=== PATIENT | female | born 1955 | race Caucasian/White ===

== ENCOUNTER 2021-08-17 04:05 | Inpatient (IN) | payer MEDICAID, OTHER ==
[~2021-08-17] VITALS: Ht 165.1 cm; Wt 66.2 kg
[2021-08-17 04:00] VITALS: BP 158/69
[2021-08-17 05:34] LABS: BASOPHILS % 0.7 % (0.0-2.0); EOSINOPHILS % 6.7 % (0.0-5.0); HEMATOCRIT. 34.6 % (36.0-48.0); HEMOGLOBIN. 11.7 g/dL (12.0-16.0); MEAN CORPUSCULAR HEMOGLOBIN 32.1 pg (28.0-32.0); MEAN CORPUSCULAR VOLUME 95.1 fL (81.0-99.0); MEAN PLATELET VOLUME 10.5 fl (7.4-10.4); MONOCYTES % 5.1 % (2.0-8.0); NEUTROPHILS % 56.5 % (40.0-76.0); PLATELET 201 x1000/uL (130-400); RED BLOOD CELL COUNT 3.64 mill/uL (4.2-5.4); RED CELL DISTRIBUTION WIDTH 12.8 % (11.6-14.6)
[2021-08-17 05:40] LABS: CHLORIDE 107 mEq/L (98-107)
[2021-08-17] MEDS ORDERED: ONDANSETRON 4MG ODT PO ONE (06:15)
[2021-08-17] MEDS ORDERED: FAMOTIDINE 20MG TABLET PO ONE (06:15)
[2021-08-17] MEDS ORDERED: MORPHINE SULFATE 4 MG/ML CPJ (NOT FOR IM USE) IV ONE (08:45)
[2021-08-17 12:09] LABS: CLARITY URINE CLEAR (CLEAR); COLOR URINE YELLOW (YELLOW); KETONES URINE NEGATIVE (NEGATIVE); LEUKOCYTE ESTERASE URINE TRACE (NEGATIVE); NITRITE URINE POSITIVE (NEGATIVE); OCCULT BLOOD URINE NEGATIVE (NEGATIVE); PROTEIN URINE NEGATIVE (NEGATIVE); SPECIFIC GRAVITY URINE 1.006 (1.005-1.030); UROBILINOGEN URINE 0.2 E.U./dL (0.2-1.0)
[2021-08-17] MEDS ORDERED: ONDANSETRON HCL 4MG/2ML INJ IV PRN (13:30)
[2021-08-17] MEDS ORDERED: ACETAMINOPHEN 325MG TABLET PO PRN ×2 (13:30)
[2021-08-17] MEDS ORDERED: PANTOPRAZOLE SODIUM 40 MG/VIAL IV SCH (13:30)
[2021-08-17] MEDS ORDERED: MAGNESIUM/ALUMINUM HYDROXIDE/SIMETHICONE 30ML UDC PO PRN (13:30)
[2021-08-17] MEDS ORDERED: IPRATROPIUM/ALBUTEROL 0.5-3(2.5)MG/3ML NEB NEB PRN (13:30)
[2021-08-17] MEDS ORDERED: KETOROLAC 15MG/ML VIAL IV PRN (13:30)
[2021-08-17] MEDS ORDERED: NA PHOS,M-B/NA PHOS,DI-BA ENEMA 118ML PR PRN (13:30)
[2021-08-17] MEDS ORDERED: NITROGLYCERIN 0.4MG TABLET SL SL PRN (13:30)
[2021-08-17] MEDS ORDERED: CLONIDINE 0.1MG TABLET PO PRN (13:30)
[2021-08-17] MEDS ORDERED: GUAIFENESIN 200MG/10ML SUGAR FREE UDC PO PRN (13:30)
[2021-08-17] MEDS ORDERED: DEXT 5%/LACTATED RINGERS 1,000 ML IV SCH (13:30)
[2021-08-17] MEDS ORDERED: DOCUSATE SODIUM 100MG CAPSULE PO PRN (13:30)
[2021-08-17] MEDS ORDERED: ZOLPIDEM TARTRATE 5MG TABLET PO PRN (13:30)
[2021-08-17 13:47] LABS: ETHANOL BLOOD < 10 mg/dL
[2021-08-17 13:49] LABS: TOTAL IRON BINDING CAPACITY 248 ug/dL (250-450)
[2021-08-17 14:28] LABS: FOLIC ACID (FOLATE) SERUM 18.8 ng/mL (>5.38)
[2021-08-17] MEDS: ENOXAPARIN 40MG/0.4ML SYR SUBCUT SCH (14:50)
[2021-08-17] MEDS: LEVOFLOXACIN 500MG PREMIX 100 ML IV SCH (14:51)
[2021-08-17] MEDS ORDERED: IOHEXOL-300 100 ML BOTTLE ONE (15:22)
[2021-08-17 17:52] LABS: TOTAL IRON BINDING CAPACITY 236 ug/dL (250-450)
[2021-08-17] MEDS: DEXT 5%/0.9% NACL 1,000 ML IV SCH (19:08)
[2021-08-17] MEDS: METOPROLOL TARTRATE 25MG TABLET PO SCH (21:35)
[2021-08-17] MEDS ORDERED: DEXTROSE 50% WATER 50ML SYRINGE IV PRN (22:45)
[2021-08-17 23:30] VITALS: BP 159/71
[2021-08-18] MEDS: PANTOPRAZOLE SODIUM 40 MG/VIAL IV SCH ×2 (02:29→13:19)
[2021-08-18] MEDS: DEXT 5%/0.9% NACL 1,000 ML IV SCH ×3 (02:30→23:38)
[2021-08-18] MEDS: INSULIN LISPRO 100 UNITS/ML SUBCUT SCH ×4 (07:50→20:38)
[2021-08-18] MEDS: BLOOD SUGAR DIAGNOSTIC STRIP TEST SCH ×4 (07:59→20:38)
[2021-08-18 08:00] VITALS: BP 123/72
[2021-08-18 08:43] LABS: BASOPHILS % 0.9 % (0.0-2.0); EOSINOPHILS % 6.9 % (0.0-5.0); HEMATOCRIT. 36.6 % (36.0-48.0); HEMOGLOBIN. 12.4 g/dL (12.0-16.0); LYMPHOCYTES % 39.6 % (20.0-50.0); MEAN CORPUSCULAR HEMOGLOBIN 32.1 pg (28.0-32.0); MEAN CORPUSCULAR VOLUME 94.9 fL (81.0-99.0); MEAN PLATELET VOLUME 11.6 fl (7.4-10.4); MONOCYTES % 6.4 % (2.0-8.0); NEUTROPHILS % 46.2 % (40.0-76.0); PLATELET 206 x1000/uL (130-400); RED BLOOD CELL COUNT 3.86 mill/uL (4.2-5.4); RED CELL DISTRIBUTION WIDTH 12.7 % (11.6-14.6)
[2021-08-18 08:48] LABS: CHLORIDE 109 mEq/L (98-107)
[2021-08-18 08:55] LABS: PHOSPHORUS 3.6 mg/dL (2.5-4.9)
[2021-08-18] MEDS: METOPROLOL TARTRATE 25MG TABLET PO SCH ×2 (09:00→20:39)
[2021-08-18 12:00] VITALS: BP 149/66
[2021-08-18] MEDS ORDERED: VANCOMYCIN 1.25GM PMX (XELLIA) 250 ML IV SCH (12:00)
[2021-08-18] MEDS: ENOXAPARIN 40MG/0.4ML SYR SUBCUT SCH (13:19)
[2021-08-18 16:00] VITALS: BP 145/54
[2021-08-18] MEDS: LEVOFLOXACIN 500MG PREMIX 100 ML IV SCH (17:07)
[2021-08-18 20:00] VITALS: BP 143/55
[2021-08-19] VITALS: BP 135/59
[2021-08-19] MEDS: VANCOMYCIN 750MG PMX (XELLIA) 150 ML IV SCH ×2 (01:11→15:34)
[2021-08-19] MEDS: PANTOPRAZOLE SODIUM 40 MG/VIAL IV SCH ×2 (01:11→15:34)
[2021-08-19 04:00] VITALS: BP 139/56
[2021-08-19] MEDS: BLOOD SUGAR DIAGNOSTIC STRIP TEST SCH ×4 (06:34→21:20)
[2021-08-19] MEDS: INSULIN LISPRO 100 UNITS/ML SUBCUT SCH ×4 (07:50→21:21)
[2021-08-19 08:00] VITALS: BP 135/61
[2021-08-19] MEDS: DEXT 5%/0.9% NACL 1,000 ML IV SCH ×2 (09:30→12:33)
[2021-08-19] MEDS: METOPROLOL TARTRATE 25MG TABLET PO SCH ×2 (10:13→10:14)
[2021-08-19 12:00] VITALS: BP 131/57
[2021-08-19] MEDS: ENOXAPARIN 40MG/0.4ML SYR SUBCUT SCH (15:34)
[2021-08-19 16:00] VITALS: BP 138/60
[2021-08-19] MEDS: LEVOFLOXACIN 500MG PREMIX 100 ML IV SCH (17:14)
[2021-08-19 20:00] VITALS: BP 107/49
[2021-08-19] MEDS: METRONIDAZOLE 500MG TABLET PO SCH (21:20)
[2021-08-20] VITALS: BP 111/53
[2021-08-20] MEDS: PANTOPRAZOLE SODIUM 40 MG/VIAL IV SCH ×2 (01:39→13:00)
[2021-08-20] MEDS: VANCOMYCIN 750MG PMX (XELLIA) 150 ML IV SCH ×2 (01:39→20:56)
[2021-08-20 04:00] VITALS: BP 113/60
[2021-08-20] MEDS: DEXT 5%/0.9% NACL 1,000 ML IV SCH ×2 (05:56→14:38)
[2021-08-20] MEDS: BLOOD SUGAR DIAGNOSTIC STRIP TEST SCH ×4 (06:23→20:56)
[2021-08-20] MEDS: INSULIN LISPRO 100 UNITS/ML SUBCUT SCH ×4 (07:41→20:57)
[2021-08-20 08:00] VITALS: BP 120/56
[2021-08-20] MEDS: METRONIDAZOLE 500MG TABLET PO SCH ×2 (08:48→20:56)
[2021-08-20] MEDS: METOPROLOL TARTRATE 25MG TABLET PO SCH ×2 (08:49→20:56)
[2021-08-20 09:07] LABS: CHLORIDE 114 mEq/L (98-107)
[2021-08-20 12:00] VITALS: BP 125/63
[2021-08-20] MEDS: ENOXAPARIN 40MG/0.4ML SYR SUBCUT SCH (13:00)
[2021-08-20 16:00] VITALS: BP 104/50
[2021-08-20] MEDS: LEVOFLOXACIN 500MG PREMIX 100 ML IV SCH (16:20)
[2021-08-20 20:00] VITALS: BP 115/55
[2021-08-21] VITALS: BP 122/56
[2021-08-21] MEDS: PANTOPRAZOLE SODIUM 40 MG/VIAL IV SCH ×2 (00:57→13:53)
[2021-08-21] MEDS: DEXT 5%/0.9% NACL 1,000 ML IV SCH ×2 (00:57→10:39)
[2021-08-21 04:00] VITALS: BP 152/59
[2021-08-21] MEDS: BLOOD SUGAR DIAGNOSTIC STRIP TEST SCH ×4 (06:20→21:59)
[2021-08-21] MEDS: INSULIN LISPRO 100 UNITS/ML SUBCUT SCH ×4 (07:50→22:11)
[2021-08-21 08:00] VITALS: BP 137/54
[2021-08-21] MEDS: METOPROLOL TARTRATE 25MG TABLET PO SCH ×2 (10:38→21:59)
[2021-08-21] MEDS: METRONIDAZOLE 500MG TABLET PO SCH ×2 (10:38→21:59)
[2021-08-21 12:10] VITALS: BP 138/59
[2021-08-21] MEDS: VANCOMYCIN 750MG PMX (XELLIA) 150 ML IV SCH (13:53)
[2021-08-21] MEDS: ENOXAPARIN 40MG/0.4ML SYR SUBCUT SCH (13:54)
[2021-08-21 15:52] VITALS: BP 132/49
[2021-08-21] MEDS: LEVOFLOXACIN 500MG PREMIX 100 ML IV SCH (19:29)
[2021-08-21 20:00] VITALS: BP 152/58
[2021-08-22] VITALS: BP 128/54
[2021-08-22 04:00] VITALS: BP 130/56
[2021-08-22] MEDS: BLOOD SUGAR DIAGNOSTIC STRIP TEST SCH ×2 (07:28→12:20)
[2021-08-22] MEDS: INSULIN LISPRO 100 UNITS/ML SUBCUT SCH ×2 (07:28→12:50)
[2021-08-22] MEDS: PANTOPRAZOLE SODIUM 40 MG/VIAL IV SCH (07:28)
[2021-08-22 07:50] VITALS: BP 106/52
[2021-08-22 08:38] LABS: CHLORIDE 115 mEq/L (98-107)
[2021-08-22] MEDS: METOPROLOL TARTRATE 25MG TABLET PO SCH (09:00)
[2021-08-22] MEDS: METRONIDAZOLE 500MG TABLET PO SCH (09:11)
[2021-08-22] MEDS: VANCOMYCIN 750MG PMX (XELLIA) 150 ML IV SCH (09:11)
[2021-08-22] MEDS ORDERED: AMOX-424 MT (09:42)
[2021-08-22] MEDS ORDERED: LEVO500T89 MT (09:42)
[2021-08-22 11:50] VITALS: BP 144/56
[2021-08-22 12:37] VITALS: BP 144/56
== END 2021-08-22 14:51 | disposition home or self-care (01) | DRG 720 ==
LOC: ER 04:05 → 6WST 13:03 → EDBEDREQTM 13:08 → EDBEDREQ 13:08 → ENRESERV 22:15
PROVIDERS: ADMIT Internal Medicine; ATTEND Internal Medicine
DX: A40.9 Streptococcal sepsis, unspecified (principal); K74.60 Unspecified cirrhosis of liver; D63.8 Anemia in other chronic diseases classified elsewhere; K80.71 Calculus of gallbladder and bile duct without cholecystitis with obstruction; E11.65 Type 2 diabetes mellitus with hyperglycemia; I10 Essential (primary) hypertension; N39.0 Urinary tract infection, site not specified; Z79.4 Long term (current) use of insulin; Z82.49 Family history of ischemic heart disease and other diseases of the circulatory system; Z90.49 Acquired absence of other specified parts of digestive tract
CPT/HCPCS: 36415; 71045; 74177; 74181; 76700; 78227; 80048; 80053; 80202; 80320; 81003; 82607; 82728; 82746; 82962; 83036; 83540; 83550; 83735; 83880; 84100; 84443; 84484; 85025; 85044; 87077; 87186; 93005; 93306; 93970; 99285; A9537; C9113; J1650; J1815; J1956; J2270; J3370; J7042; Q0162; Q9967; G0480